=== PATIENT | male | born 1990 | race Caucasian/White ===

== ENCOUNTER 2020-02-14 20:18 | Inpatient (IN) | payer OTHER ==
[~2020-02-14] VITALS: Ht 177.8 cm; Wt 77.1 kg
[2020-02-14] MEDS ORDERED: IBUPROFEN 400 MG TABLET ONE (21:24)
--- NOTE | 2020-02-14 21:28 | NUR ---
C/O R HAND PAIN, REDNESS AND SWELLING X2 DAYS S/P INJECTING HEROIN. PT AAOX4, VSS. RR EVEN & UNLABORED. DENIES CP, SOB, DIZZINESS, N/V AT THIS TIME. PT SEEN & EVAL'D BY KEEGAN SWAIN. MEDICATED FOR PAIN, PT MARGIE WELL. WILL CONT TO MONITOR.
[2020-02-14] MEDS ORDERED: IBUPROFEN 400 MG TABLET PO ONE (21:30)
[2020-02-14] MEDS ORDERED: VANCOMYCIN 1 GM in IV D5W 250 ML IV ONE (23:00)
[2020-02-14] MEDS ORDERED: PIPERACILLIN /TAZOBACTAM 3.375 G in IV D5W 50 ML IV ONE (23:00)
[2020-02-14] MEDS ORDERED: VANCOMYCIN 1 GM VIAL ONE (23:25)
[2020-02-14] MEDS ORDERED: PIPERACILLIN /TAZOBACTAM 3.375 G VIAL IV ONE (23:25)
[2020-02-14 23:37] LABS: BASOPHILS % (AUTO) 0.2 % (0.0-2.0); EOSINOPHILS % (AUTO) 1.1 % (0.0-6.0); HEMATOCRIT 43 % (39-51); HEMOGLOBIN 14.6 g/dL (13.5-17.5); MEAN CORPUSCULAR HGB CONC 34 g/dl (31.0-36.0); MEAN CORPUSCULAR VOLUME 84 fL (80-96); MONOCYTES # (AUTO) 1.2 /CMM (0.1-1.30); NEUTROPHILS % (AUTO) 67.7 % (43.0-81.0); PLATELET COUNT (AUTO) 170 /CMM (150-450); RED BLOOD CELL COUNT(AUTO) 5.12 MIL/uL (4.5-6.0); WHITE BLOOD COUNT (AUTO) 10.4 K/uL (4.3-11.0)
[2020-02-14 23:55] LABS: CALCIUM, SERUM 8.7 mg/dL (8.5-10.1); CREATININE 0.9 mg/dL (0.6-1.3); POTASSIUM 3.6 mmol/L (3.5-5.1)
[2020-02-15] MEDS ORDERED: HYDROCODONE/APAP 5/325MG TABLET PO PRN
[2020-02-15] MEDS ORDERED: Z GUARD REMEDY 2 OZ OINT TP PRN
[2020-02-15] MEDS ORDERED: MAGNESIUM HYDROXIDE 30 ML UDC PO PRN
[2020-02-15] MEDS ORDERED: ACETAMINOPHEN 325 MG TABLET PO PRN
[2020-02-15] MEDS ORDERED: ONDANSETRON HCL/PF 4 MG/2 ML VIAL IVP PRN
[2020-02-15] MEDS ORDERED: ZOLPIDEM TARTRATE 5 MG TABLET PO PRN
[2020-02-15] MEDS ORDERED: MAG HYDROX/AL HYDROX/SIMETH 30 ML UDC PO PRN
[2020-02-15] MEDS ORDERED: BUPR8TAB4 PO (00:15)
[2020-02-15] MEDS ORDERED: LORA2TAB95 PO (00:16)
--- NOTE | 2020-02-15 01:03 | NUR ---
COVID NEGATIVE, LAB CALLED.
[2020-02-15 01:15] VITALS: BP 146/80
--- NOTE | 2020-02-15 01:55 | NUR ---
MS/RN ADMITTING NOTES: REPORT GIVEN BY PALLAVI FRANCES FROM ER. PT ARRIVED TO THE UNIT AT 0155 IN STABLE CONDITION VIA WHEELCHAIR. A/OX4. VERBALLY RESPONSIVE AND ABLE TO MAKE NEEDS KNOWN. NO SOB NOTED. ON ROOM AIR, SATURATING WELL. NO S/S OF ACUTE DISTRESS. PT APPEARS TO BE ANXIOUS. COMPLAINS OF PAIN ON HIS RIGHT HAND D/T CELLULITIS. PT DOESN'T ALLOW TO BE CHANGED IN PT GOWN. REFUSES FULL BODY ASSESSMENT. PT IS AMBULATORY WITH STEADY GAIT. RIGHT HAND WAS ASSESSED. PHOTO TAKEN AND DOCUMENTED IN CHART. SKIN INTACT, SWELLING NOTED AND PINK IN COLOR. INITIAL VS TAKEN, STABLE AND WNL. BELONGINGS LIST CHECKED. PT IS ORIENTED TO STAFF AND UNIT. CALL LIGHT WITH IN REACH. SAFETY MEASURES INITIATED. BED IN LOW, LOCKED POSITION. WILL CONTINUE TO MONITOR ACCORDINGLY.
[2020-02-15 02:00] VITALS: BP 146/80
[2020-02-15] MEDS: LORAZEPAM 1 MG TABLET PO SCH ×3 (03:10→20:26)
--- NOTE | 2020-02-15 05:17 | NUR ---
MS/RN NOTES: PT STARTED CRYING. WANTING TO SMOKE OUTSIDE. INFORMED PT. IT'S TOO EARLY AND HE CAN SMOKE STARTING AT 0800. PER PT "WHY IS MY HAND NOT GETTING BETTER. IT STILL HURTS. WHY IS XIN ANTIBIOTIC NOT DOING ANYTHING? I MIGHT WELL WALK OUT". TOLD PT HE IS FREE TO LEAVE IF HE SIGNS AMA BUT REFUSES. PT STABLE AT THIS TIME. WILL CONTINUE TO MONITOR.
--- NOTE | 2020-02-15 07:15 | NUR ---
MS/RN CLOSING NOTES: PT REMAINS IN ROOM, CRYING AND PACING BACK AND FORTH IN THE ROOM. WANTING TO GO ON A SMOKE BREAK. REMAINS A/OX4. VERBALLY RESPONSIVE AND ABLE TO MAKE NEEDS KNOWN. NO SOB NOTED. ON ROOM AIR, SATURATING WELL. APPEARS TO BE ANXIOUS. COMPLAINS OF PAIN ON HIS RIGHT HAND D/T CELLULITIS. PT KEEPS SAYING "NOTHING IC CHANGED. I FEEL LIKE IT GOT WORSE. IT'S NOT GETTING BETTER. I NEED ANTIBIOTICS." EXPLAINED TO PT THE NEXT DUE ANTIBIOTIC WILL BE IN THE MORNING SHIFT AND PHARMACY HAS TO DOSE. SKIN INTACT, SWELLING NOTED AND PINK IN COLOR. CALL LIGHT WITH IN REACH. SAFETY MEASURES INITIATED. BED IN LOW, LOCKED POSITION. ENDORSED TO DAY SHIFT FOR TJ.
--- NOTE | 2020-02-15 07:20 | NUR ---
MS/RN NOTES: PT WENT TO GO ON A SMOKE BREAK. ASSISTED BY MERCHANDISE EXECUTIVE. DAY SHIFT RN AWARE. CHARGE NURSE AWARE.
--- NOTE | 2020-02-15 07:25 | NUR ---
MS/RN NOTES: PT IS NOW BACK IN THE ROOM, STABLE. ASKING FOR HOT PACK FOR HIS CELLULITIS. EXPLAINED HE CAN'T HAVE IT BECAUSE IT MAY WORSEN THE CELLULITIS.
--- NOTE | 2020-02-15 07:58 | NUR ---
RN OPENING NOTE Patient is ambulating, appears anxious, crying, and was escorted down by LABOR TRAINER for smoke break around 0700. Patient refuses to wear gown and refuses skin assessment at this time. Bed is in lowest position, side rails x3 in upright position, call light is within reach. Fall safety and aspiration precautions enforced. Will continue with plan of care.
[2020-02-15 08:00] VITALS: BP 127/71
[2020-02-15] MEDS ORDERED: Medication Not On Formulary EA (Lorazepam (Ativan) 2 MG) PO SCH (09:00)
[2020-02-15] MEDS ORDERED: BUPRENORPHINE HCL 8 MG TAB.SUBL SL SCH ×2 (09:00)
[2020-02-15 09:59] LABS: CREATININE 0.7 mg/dL (0.6-1.3); PHOSPHORUS 2.6 mg/dL (2.5-4.9); POTASSIUM 3.9 mmol/L (3.5-5.1)
[2020-02-15] MEDS ORDERED: IBUPROFEN 600 MG TABLET PO PRN (11:00)
--- NOTE | 2020-02-15 11:05 | NUR ---
RN NOTE OK per SPECIAL EDUCATION SUPERVISOR to give scheduled Ativan at this time.
[2020-02-15] MEDS: VANCOMYCIN 1 GM in IV D5W 250 ML IV SCH ×2 (11:26→18:01)
[2020-02-15 16:00] VITALS: BP 134/75
--- NOTE | 2020-02-15 19:36 | NUR ---
RN CLOSING NOTE Patient is resting in bed, A/O x4, showing no signs of acute distress or SOB, stable on RA. Patient refuses to wear gown and refuses skin assessment. All patient needs met, all due medications given, patient is independent with care. Bed is in lowest position, side rails x3 in upright position, call light is within reach. Fall safety and aspiration precautions enforced. Will endorse to overnight cashier.
--- NOTE | 2020-02-15 19:51 | NUR ---
MS RN OPENING NOTE: Received patient from AM nurse. Patient in his room standing up in his room. Patient able to make needs known. Patient is alert and oriented x4 and able to ambulate with steady gate. On room air breathing even and unlabored, no SOB or acute respiratory distress noted. Noted right edema with erythema on right hand. IV access noted on right AC, 20 gauge, patent, dry and intact, no redness, or infiltration. Safety precaution is in place, bed is in the lowest level, brakes are on, side rails x2 are up, and call light is within reach. Will continue to monitor.
[2020-02-15 20:00] VITALS: BP 134/77
[2020-02-16] MEDS: VANCOMYCIN 1 GM in IV D5W 250 ML IV SCH ×2 (03:27→11:55)
--- NOTE | 2020-02-16 06:34 | NUR ---
MS RN CLOSING NOTE: Patient in bed sleeping comfortably. Patient is stable and all needs were attended to. Patient breathing well on room air, no respiratory distress or SOB noted. Safety precaution is maintained, bed is in the lowest level, brakes are on, side rails x2 are up, and call light is within reach. Will endorse to AM nurse.
[2020-02-16 07:32] LABS: BASOPHILS % (AUTO) 0.2 % (0.0-2.0); EOSINOPHILS % (AUTO) 1.2 % (0.0-6.0); HEMATOCRIT 43 % (39-51); HEMOGLOBIN 14.6 g/dL (13.5-17.5); LYMPHOCYTES # (AUTO) 1.5 /CMM (0.8-4.8); LYMPHOCYTES % (AUTO) 17.6 % (20.0-44.0); MEAN CORPUSCULAR HGB CONC 34 g/dl (31.0-36.0); MEAN CORPUSCULAR VOLUME 84 fL (80-96); MONOCYTES % (AUTO) 11.7 % (2.0-12.0); NEUTROPHILS % (AUTO) 69.3 % (43.0-81.0); PLATELET COUNT (AUTO) 153 /CMM (150-450); RED BLOOD CELL COUNT(AUTO) 5.13 MIL/uL (4.5-6.0); WHITE BLOOD COUNT (AUTO) 8.6 K/uL (4.3-11.0)
[2020-02-16 07:41] LABS: CALCIUM, SERUM 9.1 mg/dL (8.5-10.1); CREATININE 0.6 mg/dL (0.6-1.3); MAGNESIUM 2.1 mg/dL (1.8-2.4); PHOSPHORUS 3.1 mg/dL (2.5-4.9); POTASSIUM 3.7 mmol/L (3.5-5.1)
[2020-02-16 08:00] VITALS: BP 144/83
--- NOTE | 2020-02-16 08:00 | NUR ---
m/s beverage inspection machine tender: initial assessment received pt in bed awake, a/ox4 with dx: right hand cellulitis. still with swelling and redness. elevated with pillow. no c/o numbness/tingling, but tender to touch. pt refusing pain meds when offered. instructed to call for assistance. will continue to monitor.
[2020-02-16] MEDS: LORAZEPAM 1 MG TABLET PO SCH (08:02)
[2020-02-16] MEDS ORDERED: SULF1TAB48 PO (09:55)
--- NOTE | 2020-02-16 10:00 | NUR ---
m/s hospice clinical marketer: md visit seen and examined by dr. pierce with order to d'c home with po antibiotic. order acknowledged. pt verbalized understanding.
--- NOTE | 2020-02-16 10:48 | NUR ---
Roller Skates Assembler consult requested by Laura Freedman NP for patient's drug use. Patient was not in his room. SW to follow-up with talking books library clerk Nino regarding this patient. Addendum: 02/16/20 at 1050 by MANSI DOMINIQUE SW talking books library clerk Nino informed this SW that patient was outside smoking. This SW to follow-up in about 20 minutes to conduct SW assessment.
--- NOTE | 2020-02-16 11:55 | NUR ---
m/s sizing machine operator: notes vanco trough=6. vanco ivpb hanged by rn. pt for d'c home after antibiotic.
--- NOTE | 2020-02-16 12:00 | NUR ---
m/s stacker driver: notes pt refusing to continue his iv antibiotic and wants to go home. h/l removed with tip intact. discharge instructions with prescriptions given to pt and verbalized understanding. encourage to elevate right upper extremity. pt called his friend to pick him up. will continue to monitor.
--- NOTE | 2020-02-16 12:34 | NUR ---
Air Pollution Auditor consult requested by Laura Freedman NP for patient's drug use. Patient informed this SW that he will be returning for treatment at [facility] [address], [place] [address] . Patient stated that he had to refuse pain medications during his admission at [facility]. Patient would like this SW to call [facility] and request ETA of arrival. SW to follow-up with [facility] Addendum: 02/16/20 at 1237 by MANSI KEARNS Nurse Transitional from [facility] stated ETA within 15-20 minutes.
--- NOTE | 2020-02-16 13:00 | NUR ---
m/s rn wound: notes discharge home at 1240pm per covering nurse in stable condition with all d'c papers and valuables.
[2020-02-16] MEDS ORDERED: VANCOMYCIN 1.5 GM in IV D5W 500ml IV SCH (20:00)
== END 2020-02-16 12:35 | disposition home or self-care (01) | DRG 603 ==
LOC: ER 20:34 → MED 02-15 01:28
PROVIDERS: ADMIT Nurse Practitioner Acute Care; ATTEND Nurse Practitioner Acute Care
DX: L03.113 Cellulitis of right upper limb (principal); F41.9 Anxiety disorder, unspecified; F11.10 Opioid abuse, uncomplicated
CPT/HCPCS: 36415; 73130-TC; 80048-TC; 80202-TC; 83605-TC; 83735-TC; 84100-TC; 85025-TC; 87040-TC; 87081-TC; 93971-TC; C9803-CS; G0378; J2543; J3370; J7060

== ENCOUNTER 2020-04-10 08:39 | Emergency (ER) | payer OTHER ==
[~2020-04-10] VITALS: Ht 180.3 cm; Wt 79.4 kg
[~2020-04-10 08:39] MED LIST: BUPR8TAB4 PO; LORA2TAB95 PO; SULF1TAB48 PO
--- NOTE | 2020-04-10 08:49 | NUR ---
c/o face pain and swelling x 3 days, on oral antibiotic cephalexin 500mg started yesterday 11/20 pain scale. Patient a/ox4, breathing even and unlabored, no sob noted. Needs attended.
[2020-04-10 09:09] VITALS: BP 136/70
--- NOTE | 2020-04-10 09:09 | NUR ---
RX provided. Patient discharged to home in stable condition. Written and verbal after care instructions given. Patient verbalizes understanding of instruction.
== END 2020-04-10 09:09 | disposition home or self-care (01) ==
LOC: ER 08:42
DX: L03.211 Cellulitis of face (principal); Z79.899 Other long term (current) drug therapy

== ENCOUNTER 2020-05-21 20:59 | Emergency (ER) | payer OTHER ==
[~2020-05-21] VITALS: Ht 175.3 cm; Wt 77.1 kg
[2020-05-21 20:59] VITALS: BP 124/79
== END 2020-05-21 21:45 | disposition home or self-care (01) ==
LOC: ER 20:59
DX: L73.9 Follicular disorder, unspecified (principal); Z79.899 Other long term (current) drug therapy